=== PATIENT | male | born 1955 | race Caucasian/White ===

== ENCOUNTER 2020-02-18 16:27 | Emergency (ER) | payer MEDICAID ==
[~2020-02-18] VITALS: Ht 177.8 cm; Wt 73.0 kg
[~2020-02-18 16:27] MED LIST: ASPI-1160 PO; ATOR20TA65 MT
[2020-02-18 17:33] LABS: BASOPHILS % 0.8 % (0.0-2.0); EOSINOPHILS % 1.7 % (0.0-5.0); HEMATOCRIT. 43.7 % (42.0-52.0); HEMOGLOBIN. 14.8 g/dL (14.0-18.0); LYMPHOCYTES % 31.5 % (20.0-50.0); MEAN CORPUSCULAR HEMOGLOBIN 30.8 pg (28.0-32.0); MEAN CORPUSCULAR VOLUME 90.8 fL (80.0-94.0); MEAN PLATELET VOLUME 8.1 fl (7.4-10.4); MONOCYTES % 8.2 % (2.0-8.0); NEUTROPHILS % 57.8 % (40.0-76.0); PLATELET 148 x1000/uL (130-400); RED BLOOD CELL COUNT 4.81 mill/uL (4.7-6.1); RED CELL DISTRIBUTION WIDTH 12.9 % (11.6-14.6)
[2020-02-18 17:44] LABS: CHLORIDE 109 mEq/L (98-107)
[2020-02-18 17:53] LABS: ETHANOL BLOOD < 10 mg/dL
[2020-02-18 18:14] LABS: CLARITY URINE CLEAR (CLEAR); COLOR URINE DARK YELLOW (YELLOW); KETONES URINE TRACE (NEGATIVE); LEUKOCYTE ESTERASE URINE NEGATIVE (NEGATIVE); NITRITE URINE NEGATIVE (NEGATIVE); OCCULT BLOOD URINE NEGATIVE (NEGATIVE); PH URINE 5.5 (4.5-8.0); PROTEIN URINE NEGATIVE (NEGATIVE); SPECIFIC GRAVITY URINE 1.033 (1.005-1.030)
[2020-02-18 18:45] LABS: *AMPHETAMINES SCREEN URINE NEGATIVE (NEGATIVE); *BARBITURATES SCREEN URINE NEGATIVE (NEGATIVE); *BENZODIAZEPINES SCREEN URINE NEGATIVE (NEGATIVE); *COCAINE SCREEN URINE NEGATIVE (NEGATIVE); CANNABINOID URINE SCREEN NEGATIVE (NEGATIVE); METHADONE URINE SCREEN NEGATIVE (NEGATIVE); OPIATES URINE SCREEN NEGATIVE (NEGATIVE); PHENCYCLIDINE URINE SCREEN NEGATIVE (NEGATIVE)
[2020-02-19 06:58] VITALS: BP 101/68
== END 2020-02-19 07:10 | disposition home or self-care (01) ==
LOC: ER 16:27
DX: F23 Brief psychotic disorder (principal); Z85.9 Personal history of malignant neoplasm, unspecified; Z98.890 Other specified postprocedural states; Z79.82 Long term (current) use of aspirin
CPT/HCPCS: 36415; 80053; 80305; 80307; 80320; 80329; 81003; 85025; 99285; G0480

== ENCOUNTER 2021-03-08 16:07 | Emergency (ER) | payer MEDICAID, OTHER ==
[~2021-03-08] VITALS: Ht 177.8 cm; Wt 80.0 kg
[2021-03-09 01:02] LABS: BASOPHILS % 0.6 % (0.0-2.0); EOSINOPHILS % 1.8 % (0.0-5.0); HEMATOCRIT. 46.3 % (42.0-52.0); HEMOGLOBIN. 15.6 g/dL (14.0-18.0); LYMPHOCYTES % 30.7 % (20.0-50.0); MEAN CORPUSCULAR HEMOGLOBIN 30.4 pg (28.0-32.0); MEAN CORPUSCULAR VOLUME 90.5 fL (80.0-94.0); MEAN PLATELET VOLUME 7.7 fl (7.4-10.4); MONOCYTES % 7.8 % (2.0-8.0); NEUTROPHILS % 59.1 % (40.0-76.0); PLATELET 184 x1000/uL (130-400); RED BLOOD CELL COUNT 5.12 mill/uL (4.7-6.1); RED CELL DISTRIBUTION WIDTH 13.9 % (11.6-14.6)
[2021-03-09 01:03] LABS: CHLORIDE 109 mEq/L (98-107)
[2021-03-09 01:07] LABS: ETHANOL BLOOD < 10 mg/dL
[2021-03-09] MEDS ORDERED: LEVETIRACETAM 500MG PREMIX 100 ML IV ONE (02:45)
[2021-03-09] MEDS ORDERED: KEPP500 MT (03:23)
[2021-03-09 05:59] VITALS: BP 124/82
== END 2021-03-09 06:00 | disposition home or self-care (01) ==
LOC: ER 16:07
DX: R56.9 Unspecified convulsions (principal); I10 Essential (primary) hypertension; F20.9 Schizophrenia, unspecified; Z79.899 Other long term (current) drug therapy
CPT/HCPCS: 36415; 70450; 71045; 80053; 80320; 84484; 85025; 93005; 96374; 99285; J1953; G0480

== ENCOUNTER 2021-03-22 14:52 | Emergency (ER) | payer OTHER ==
[~2021-03-22] VITALS: Ht 177.8 cm; Wt 91.0 kg
[~2021-03-22 14:52] MED LIST changes: +KEPP500 MT
[2021-03-22 15:56] LABS: BASOPHILS % 0.8 % (0.0-2.0); EOSINOPHILS % 1.8 % (0.0-5.0); HEMATOCRIT. 45.9 % (42.0-52.0); HEMOGLOBIN. 15.6 g/dL (14.0-18.0); LYMPHOCYTES % 28.5 % (20.0-50.0); MEAN CORPUSCULAR HEMOGLOBIN 30.9 pg (28.0-32.0); MEAN PLATELET VOLUME 7.5 fl (7.4-10.4); MONOCYTES % 7.3 % (2.0-8.0); NEUTROPHILS % 61.6 % (40.0-76.0); PLATELET 197 x1000/uL (130-400); RED BLOOD CELL COUNT 5.05 mill/uL (4.7-6.1); RED CELL DISTRIBUTION WIDTH 13.5 % (11.6-14.6)
[2021-03-22 16:02] LABS: CHLORIDE 107 mEq/L (98-107)
[2021-03-22] MEDS ORDERED: MAGNESIUM/ALUMINUM HYDROXIDE/SIMETHICONE 30ML UDC PO STA (20:40)
[2021-03-22] MEDS ORDERED: ONDANSETRON 4MG ODT PO ONE (20:45)
[2021-03-22] MEDS ORDERED: KETOROLAC 60MG/2ML VIAL IM ONE (20:45)
[2021-03-22] MEDS ORDERED: IBUP-2028 MT (23:48)
[2021-03-22] MEDS ORDERED: ACET-2708 MT (23:49)
[2021-03-23 02:00] VITALS: BP 138/72
== END 2021-03-23 02:20 | disposition home or self-care (01) ==
LOC: ER 15:21
DX: R07.89 Other chest pain (principal); I10 Essential (primary) hypertension; F20.9 Schizophrenia, unspecified; Z79.899 Other long term (current) drug therapy
CPT/HCPCS: 36415; 71045; 74176; 80053; 83690; 83880; 84484; 85025; 93005; 96372; 99285; J1885; Q0162

== ENCOUNTER 2021-03-23 03:34 | Emergency (ER) | payer OTHER ==
[~2021-03-23] VITALS: Ht 170.2 cm; Wt 73.0 kg
[~2021-03-23 03:34] MED LIST changes: +ACET-2708 MT; +IBUP-2028 MT
[2021-03-23] MEDS ORDERED: ACETAMINOPHEN 325MG TABLET PO ONE (05:15)
[2021-03-23 06:15] VITALS: BP 129/75
== END 2021-03-23 06:00 | disposition home or self-care (01) ==
LOC: ER 03:34
DX: R10.9 Unspecified abdominal pain (principal); I10 Essential (primary) hypertension; Z86.59 Personal history of other mental and behavioral disorders; Z98.890 Other specified postprocedural states
CPT/HCPCS: 93005; 99283

== ENCOUNTER 2021-05-21 13:30 | Inpatient (IN) | payer MEDICAID, OTHER ==
[~2021-05-21] VITALS: Ht 172.7 cm; Wt 84.8 kg
[2021-05-21] MEDS ORDERED: LEVETIRACETAM 500MG PREMIX 100 ML IV ONE (14:00)
[2021-05-21] MEDS ORDERED: SODIUM CHLORIDE 0.9% 1,000 ML IV ONE (14:00)
[2021-05-21] MEDS ORDERED: KETOROLAC 15MG/ML VIAL IV ONE (14:00)
[2021-05-21 14:41] LABS: BASOPHILS % 0.6 % (0.0-2.0); EOSINOPHILS % 1.1 % (0.0-5.0); HEMOGLOBIN. 15.6 g/dL (14.0-18.0); LYMPHOCYTES % 25.9 % (20.0-50.0); MEAN CORPUSCULAR HEMOGLOBIN 30.1 pg (28.0-32.0); MEAN CORPUSCULAR VOLUME 90.6 fL (80.0-94.0); MEAN PLATELET VOLUME 7.5 fl (7.4-10.4); MONOCYTES % 5.6 % (2.0-8.0); NEUTROPHILS % 66.8 % (40.0-76.0); PLATELET 182 x1000/uL (130-400); RED BLOOD CELL COUNT 5.19 mill/uL (4.7-6.1); RED CELL DISTRIBUTION WIDTH 12.8 % (11.6-14.6)
[2021-05-21 14:48] LABS: CHLORIDE 107 mEq/L (98-107)
[2021-05-21 14:52] LABS: ETHANOL BLOOD < 10 mg/dL
[2021-05-21] MEDS ORDERED: ASPIRIN 81MG TABLET PO ONE (17:00)
[2021-05-21] MEDS ORDERED: NITROGLYCERIN 0.4MG TABLET SL SL PRN (17:00)
[2021-05-21] MEDS ORDERED: MORPHINE SULFATE 4 MG/ML CPJ (NOT FOR IM USE) IV STA (17:31)
[2021-05-21] MEDS ORDERED: ONDANSETRON HCL 4MG/2ML INJ IV STA (17:31)
[2021-05-21] MEDS ORDERED: DOCUSATE SODIUM 100MG CAPSULE PO PRN (18:30)
[2021-05-21] MEDS ORDERED: IPRATROPIUM/ALBUTEROL 0.5-3(2.5)MG/3ML NEB HHN PRN (18:30)
[2021-05-21] MEDS ORDERED: ACETAMINOPHEN 325MG TABLET PO PRN ×2 (18:30)
[2021-05-21] MEDS ORDERED: ONDANSETRON HCL 4MG/2ML INJ IV PRN (18:30)
[2021-05-21] MEDS ORDERED: CLONIDINE 0.1MG TABLET PO PRN (18:30)
[2021-05-21] MEDS: SODIUM CHLORIDE 0.9% 1,000 ML IV SCH (19:00)
[2021-05-21 20:00] VITALS: BP 128/88
[2021-05-21 22:10] VITALS: BP 128/88
[2021-05-22 04:00] VITALS: BP 108/70
[2021-05-22] MEDS: SODIUM CHLORIDE 0.9% 1,000 ML IV SCH (04:09)
[2021-05-22 08:00] VITALS: BP 109/61
[2021-05-22 08:21] LABS: AMYLASE 75 IU/L (25-115)
[2021-05-22] MEDS: HYDROCODONE/ACETAMINOPHEN 5/325MG TABLET PO PRN ×3 (09:03→21:11)
[2021-05-22] MEDS: LORAZEPAM 0.5MG TABLET PO PRN (09:14)
[2021-05-22] MEDS ORDERED: HALOPERIDOL LACTATE 5MG/ML VIAL IM PRN (10:15)
[2021-05-22 12:00] VITALS: BP 148/91
[2021-05-22] MEDS: ASPIRIN 81MG TABLET PO SCH (13:43)
[2021-05-22] MEDS: ATORVASTATIN CALCIUM 20MG TABLET PO SCH (13:43)
[2021-05-22 16:00] VITALS: BP 138/80
[2021-05-22 20:00] VITALS: BP 105/73
[2021-05-22] MEDS: LEVETIRACETAM 500MG/5ML CUP PO SCH (21:11)
[2021-05-23] VITALS: BP 112/60
[2021-05-23] MEDS: HYDROCODONE/ACETAMINOPHEN 5/325MG TABLET PO PRN ×5 (02:51→22:14)
[2021-05-23 04:00] VITALS: BP 120/81
[2021-05-23 07:23] LABS: BASOPHILS % 0.5 % (0.0-2.0); HEMATOCRIT. 44.3 % (42.0-52.0); HEMOGLOBIN. 15.5 g/dL (14.0-18.0); LYMPHOCYTES % 32.6 % (20.0-50.0); MEAN CORPUSCULAR HEMOGLOBIN 31.1 pg (28.0-32.0); MEAN CORPUSCULAR VOLUME 88.9 fL (80.0-94.0); MEAN PLATELET VOLUME 7.5 fl (7.4-10.4); MONOCYTES % 8.2 % (2.0-8.0); NEUTROPHILS % 57.7 % (40.0-76.0); PLATELET 174 x1000/uL (130-400); RED BLOOD CELL COUNT 4.99 mill/uL (4.7-6.1); RED CELL DISTRIBUTION WIDTH 12.7 % (11.6-14.6)
[2021-05-23 07:40] LABS: CHLORIDE 108 mEq/L (98-107)
[2021-05-23 08:00] VITALS: BP 113/77
[2021-05-23] MEDS: ASPIRIN 81MG TABLET PO SCH (08:36)
[2021-05-23] MEDS: ATORVASTATIN CALCIUM 20MG TABLET PO SCH (08:37)
[2021-05-23] MEDS: LEVETIRACETAM 500MG/5ML CUP PO SCH ×2 (08:41→22:08)
[2021-05-23 12:00] VITALS: BP_SYST 103; BP_SYST 116; BP_DIAS 62; BP_DIAS 66
[2021-05-23 16:00] VITALS: BP 116/66
[2021-05-23] MEDS: KETOROLAC 15MG/ML VIAL IV PRN ×3 (18:30→21:36)
[2021-05-23 20:00] VITALS: BP 128/79
[2021-05-23] MEDS ORDERED: QUETIAPINE FUMARATE 25MG TABLET PO SCH (21:00)
[2021-05-24] VITALS: BP 125/60
[2021-05-24 04:00] VITALS: BP 102/75
[2021-05-24 08:01] VITALS: BP 139/89
[2021-05-24] MEDS: ATORVASTATIN CALCIUM 20MG TABLET PO SCH (08:22)
[2021-05-24] MEDS: KETOROLAC 15MG/ML VIAL IV PRN (08:22)
[2021-05-24] MEDS: ASPIRIN 81MG TABLET PO SCH (08:22)
[2021-05-24] MEDS: LEVETIRACETAM 500MG/5ML CUP PO SCH (08:22)
[2021-05-24 11:45] VITALS: BP 125/84
[2021-05-24] MEDS: LORAZEPAM 0.5MG TABLET PO PRN (12:07)
[2021-05-24] MEDS: HYDROCODONE/ACETAMINOPHEN 5/325MG TABLET PO PRN (13:26)
[2021-05-24 16:19] VITALS: BP 109/70
[2021-05-24] MEDS ORDERED: LEVE10006 MT (17:46)
[2021-05-24] MEDS ORDERED: QUET25TA PO (17:46)
[2021-05-24 18:22] VITALS: BP 109/70
[2021-05-24 19:07] LABS: CANNABINOID URINE SCREEN NEGATIVE (NEGATIVE); PHENCYCLIDINE URINE SCREEN NEGATIVE (NEGATIVE)
[2021-05-24 19:08] LABS: *AMPHETAMINES SCREEN URINE NEGATIVE (NEGATIVE); *BARBITURATES SCREEN URINE NEGATIVE (NEGATIVE); *BENZODIAZEPINES SCREEN URINE NEGATIVE (NEGATIVE); *COCAINE SCREEN URINE NEGATIVE (NEGATIVE); METHADONE URINE SCREEN NEGATIVE (NEGATIVE); OPIATES URINE SCREEN PRESUMTIVE POSITIVE (NEGATIVE)
== END 2021-05-24 21:40 | disposition home or self-care (01) | DRG 53 ==
LOC: ER 13:30 → 8WST 17:26 → ENRESERV 21:23
PROVIDERS: ADMIT Internal Medicine; ATTEND Internal Medicine
DX: G40.409 Other generalized epilepsy and epileptic syndromes, not intractable, without status epilepticus (principal); K85.90 Acute pancreatitis without necrosis or infection, unspecified; I67.82 Cerebral ischemia; C69.91 Malignant neoplasm of unspecified site of right eye; K75.9 Inflammatory liver disease, unspecified; F20.9 Schizophrenia, unspecified; I10 Essential (primary) hypertension; Z20.822 Contact with and (suspected) exposure to COVID-19; R74.8 Abnormal levels of other serum enzymes; Z85.820 Personal history of malignant melanoma of skin; Z87.891 Personal history of nicotine dependence; Z88.8 Allergy status to other drugs, medicaments and biological substances; Z79.899 Other long term (current) drug therapy; Z79.1 Long term (current) use of non-steroidal anti-inflammatories (NSAID); Z79.82 Long term (current) use of aspirin
CPT/HCPCS: 36415; 71045; 80048; 80053; 80305; 80320; 82150; 82962; 83036; 83880; 84443; 84484; 85025; 85379; 87426; 93005; 93306; 99285; C1893; J1885; J1953; J2270; J2405; J7030; G0480

== ENCOUNTER 2021-06-29 10:52 | Emergency (ER) | payer MEDICAID, OTHER ==
[~2021-06-29] VITALS: Ht 172.7 cm; Wt 80.0 kg
[~2021-06-29 10:52] MED LIST changes: -ACET-2708 MT; -ASPI-1160 PO; -IBUP-2028 MT; -KEPP500 MT; +LEVE10006 MT; +QUET25TA PO
[2021-06-29] MEDS ORDERED: ACETAMINOPHEN 325MG TABLET PO ONE (12:30)
[2021-06-29 14:00] VITALS: BP 143/84
== END 2021-06-29 14:02 | disposition home or self-care (01) ==
LOC: ER 10:52
DX: S09.90XA Unspecified injury of head, initial encounter (principal); R07.81 Pleurodynia; I10 Essential (primary) hypertension; Z86.59 Personal history of other mental and behavioral disorders; Z88.8 Allergy status to other drugs, medicaments and biological substances; Z98.890 Other specified postprocedural states; W18.30XA Fall on same level, unspecified, initial encounter; Y93.89 Activity, other specified; Y92.89 Other specified places as the place of occurrence of the external cause; Y99.8 Other external cause status
CPT/HCPCS: 71250; 99284

== ENCOUNTER 2021-07-08 17:41 | Emergency (ER) | payer MEDICAID ==
[~2021-07-08] VITALS: Ht 177.8 cm; Wt 80.0 kg
[2021-07-08] MEDS ORDERED: KETOROLAC 15MG/ML VIAL IV ONE (21:30)
[2021-07-09 09:28] VITALS: BP 121/60
== END 2021-07-09 09:29 | disposition home or self-care (01) ==
LOC: ER 17:41
DX: R07.81 Pleurodynia (principal); H53.8 Other visual disturbances; G40.909 Epilepsy, unspecified, not intractable, without status epilepticus; I10 Essential (primary) hypertension; F20.9 Schizophrenia, unspecified; Z87.828 Personal history of other (healed) physical injury and trauma; Z98.890 Other specified postprocedural states; Z85.9 Personal history of malignant neoplasm, unspecified; Z86.19 Personal history of other infectious and parasitic diseases; Z88.8 Allergy status to other drugs, medicaments and biological substances
CPT/HCPCS: 71046; 96374; 99285